=== PATIENT | female | born 1985 | race African-American/Black ===

== ENCOUNTER 2018-10-19 06:15 | Inpatient (IN) ==
[2018-10-19] MEDS ORDERED: ceFAZolin 2,000 MG in PREMIX 1 EACH IV ONE (06:56)
[2018-10-19] MEDS ORDERED: CITRIC ACID/SODIUM CITRATE 30 ML UDCUP PO ONE (06:56)
[2018-10-19] MEDS ORDERED: FAMOTIDINE 20 MG/2 ML VIAL IV ONE (06:56)
[2018-10-19 07:14] LABS: Basophils # 0.1 10*3/uL (0.0-0.2); Basophils % 0.4 % (0.0-0.8); Eosinophils # 0.1 10*3/uL (0.0-0.87); Eosinophils % 0.8 % (0.00-10.9); Hematocrit 29.8 VOL% (35.7-47.0); Hemoglobin 8.9 GM/DL (12.0-16.0); Immature Granulocytes % 1.3 %; Immature Granulocytes Absolute 0.19 #; Lymphocytes # 3.1 10*3/uL (1.4-4.0); Mean Corpuscular HGB Conc 29.9 GM/DL (32-36); Mean Corpuscular Hemoglobin 24 PG (27-34); Mean Platelet Volume 10.4 FL (9.6-12.0); Monocytes # 1.3 10*3/uL (0.11-0.8); Monocytes % 8.5 % (1.7-12.7); Neutrophils # 10.1 10*3/uL (1.4-7.4); Platelet Count 297 T/CUMM (130-400); Red Blood Count 3.68 MC/CUMM (3.8-5.5); Red Cell Distribution Width 16.1 % (9.3-17.3); White Blood Count 14.9 T/CUMM (4-12)
[2018-10-19] MEDS: LACTATED RINGERS 1,000 ML IV SCH ×3 (08:48→20:34)
[2018-10-19] MEDS ORDERED: OXYTOCIN/LR 20 UNIT/1,000 ML BAG IV SCH (09:30)
[2018-10-19 11:03] LABS: Apearance,Urine CLEAR (Clear); Bacteria,Urine Occasional /HPF (Few); Bilirubin,Urine Negative (Negative); Blood, Urine Negative (Negative); Glucose,Urine (UA) Negative (Negative); Ketones,Urine Negative (Negative); Nitrite,Urine Negative (Negative); Protein,Urine Negative; RBC,Urine 1 /HPF (0-4); Urine Color Straw (Yellow); Urine Specific Gravity 1.009 (1.001-1.035); Urine Urobilinogen < 2.0 EU/DL (0.2-1.0); WBC,Urine <1 /HPF (0-6)
[2018-10-19] MEDS ORDERED: BUPIVACAINE SPINAL 0.75% 2 ML AMP SPINAL ONE (11:21)
[2018-10-19] MEDS ORDERED: MORPHINE 10 MG/10 ML VIAL ONE (11:22)
[2018-10-19] MEDS ORDERED: ONDANSETRON 4 MG/2 ML VIAL ONE (11:22)
[2018-10-19] MEDS ORDERED: PHENYLEPHRINE 1 MG/10 ML SYRINGE IV ONE (11:22)
[2018-10-19] MEDS ORDERED: METHYLDOPA 250 MG TABLET PO SCH ×2 (14:00→21:00)
[2018-10-19] MEDS ORDERED: ONDANSETRON 4 MG/2 ML VIAL IV ONE (14:53)
[2018-10-19] MEDS ORDERED: hydrALAZINE 20 MG/1 ML VIAL IV PRN (15:27)
[2018-10-19] MEDS ORDERED: MAGNESIUM SULF RIDER 4 GM in PREMIX 1 EACH IV ONE (15:27)
[2018-10-19] MEDS ORDERED: MAGNESIUM SULF DRIP 40 GM/1,000 ML ML IV SCH (16:00)
[2018-10-19] MEDS ORDERED: ONDANSETRON 4 MG/2 ML VIAL IV PRN (16:12)
[2018-10-19] MEDS ORDERED: KETOROLAC 30 MG/1 ML VIAL IV SCH (16:30)
[2018-10-19] MEDS ORDERED: RHO(D) IMMUNE GLOBULIN 300 MCG SYRINGE IM ONE (17:00)
[2018-10-19] MEDS: ceFAZolin 1,000 MG in SYRINGE 1 EACH IV SCH (17:28)
[2018-10-19] MEDS: DOCUSATE SODIUM 100 MG CAPSULE PO SCH (22:45)
[2018-10-20] MEDS: ceFAZolin 1,000 MG in SYRINGE 1 EACH IV SCH (01:06)
[2018-10-20 05:50] LABS: Basophils % 0.3 % (0.0-0.8); Eosinophils # 0.1 10*3/uL (0.0-0.87); Eosinophils % 0.4 % (0.00-10.9); Hematocrit 26.9 VOL% (35.7-47.0); Hemoglobin 8.3 GM/DL (12.0-16.0); Immature Granulocytes % 0.5 %; Immature Granulocytes Absolute 0.07 #; Lymphocytes # 1.3 10*3/uL (1.4-4.0); Lymphocytes % 9.1 % (21.3-54.2); Mean Corpuscular HGB Conc 30.9 GM/DL (32-36); Mean Corpuscular Hemoglobin 24 PG (27-34); Mean Corpuscular Volume 78.9 FL (87-102); Mean Platelet Volume 10.7 FL (9.6-12.0); Monocytes # 1.2 10*3/uL (0.11-0.8); Neutrophils # 11.7 10*3/uL (1.4-7.4); Neutrophils % 81.7 % (38.7-73.9); Platelet Count 269 T/CUMM (130-400); Red Blood Count 3.41 MC/CUMM (3.8-5.5); White Blood Count 14.3 T/CUMM (4-12)
[2018-10-20] MEDS: DOCUSATE SODIUM 100 MG CAPSULE PO SCH ×2 (09:19→21:54)
[2018-10-20] MEDS: MULTIVITAMIN (PRENATAL) TABLET PO SCH (09:19)
[2018-10-20] MEDS: SIMETHICONE CHEW 80 MG TABLET PO PRN ×2 (12:11→21:54)
[2018-10-20] MEDS: IBUPROFEN 800 MG TABLET PO SCH ×2 (12:11→20:30)
[2018-10-20] MEDS: MAGNESIUM HYDROXIDE SUSP 30 ML UDCUP PO PRN (21:54)
[2018-10-21] MEDS: IBUPROFEN 800 MG TABLET PO SCH ×2 (04:15→11:30)
[2018-10-21 07:43] VITALS: BP 117/57
[2018-10-21] MEDS: MULTIVITAMIN (PRENATAL) TABLET PO SCH (09:03)
[2018-10-21] MEDS: DOCUSATE SODIUM 100 MG CAPSULE PO SCH (09:03)
[2018-10-21] MEDS: MAGNESIUM HYDROXIDE SUSP 30 ML UDCUP PO PRN (09:04)
[2018-10-21] MEDS ORDERED: DIPH/TET/ACEL PERT BOOSTER VACCINE 0.5 ML VIAL IM ONE (13:46)
== END 2018-10-21 16:45 | disposition home or self-care (01) | DRG 540 ==
LOC: N.LDOUT 06:15 → N.LD 06:19 → N.OB 10-20 11:45
PROVIDERS: ADMIT Obstetrics & Gynecology; ATTEND Obstetrics & Gynecology
PROC: LDCSECT (ICD-10-PCS; 2018-10-19 09:30)